=== PATIENT | female | born 1975 | race Caucasian/White ===

== ENCOUNTER 2023-06-12 09:56 | Day surgery (SDC) | payer OTHER ==
[~2023-06-12] VITALS: Ht 157.5 cm; Wt 62.3 kg
[2023-06-12] MEDS: NS 1,000 ML IV ONE (10:20)
[2023-06-12] MEDS ORDERED: propofoL 200 MG/20 ML VIAL As Ordered ONE (11:55)
[2023-06-12 12:28] VITALS: TEMP 97.8
[2023-06-12 12:44] VITALS: BP 126/69; O2SAT 100
== END 2023-06-12 12:55 | disposition home or self-care (01) ==
LOC: M OPP 09:56
PROVIDERS: ATTEND Internal Medicine Gastroenterology
DX: K63.5 Polyp of colon (principal); K64.8 Other hemorrhoids; R19.5 Other fecal abnormalities; Z88.0 Allergy status to penicillin